=== PATIENT | female | born 1965 | race Caucasian/White ===

== ENCOUNTER 2019-11-19 16:36 | Emergency (ER) | payer MEDICAID ==
[~2019-11-19] VITALS: Ht 154.9 cm; Wt 54.4 kg
[2019-11-19 16:55] VITALS: BP 86/53
[2019-11-19] MEDS ORDERED: NACL 0.9% 1,000 ML IV SCH (17:12)
[2019-11-19] MEDS ORDERED: ONDANSETRON 4 MG/2 ML VIAL IVP ONE (17:15)
[2019-11-19] MEDS ORDERED: PANTOPRAZOLE 40 MG INJ VIAL IVP ONE (17:15)
[2019-11-19] MEDS: PROMETHAZINE 25 MG/ML VIAL IM ONE ×2 (17:39→17:40)
[2019-11-19 17:52] LABS: BASOPHILS # (AUTO) 0.1 K/uL (0.00-0.22); BASOPHILS % (AUTO) 0.6 % (0.0-2.0); EOSINOPHILS # (AUTO) 0.3 K/uL (0-0.4); EOSINOPHILS % (AUTO) 3.5 % (0.0-4.0); HEMOGLOBIN 11.1 g/dL (12.0-16.0); LYMPHOCYTES # (AUTO) 2.1 K/uL (2.5-16.5); LYMPHOCYTES % (AUTO) 23.6 % (20.5-51.1); MEAN CORPUSCULAR HEMOGLOBIN 25 pg (27-31); MEAN CORPUSCULAR HGB CONC 31 g/dL (33-37); MEAN CORPUSCULAR VOLUME 82.8 fL (80-94); MONOCYTES # (AUTO) 0.3 K/uL (0.8-1.0); MONOCYTES % (AUTO) 2.9 % (1.7-9.3); NEUTROPHILS # (AUTO) 6.1 K/uL (1.8-7.7); NEUTROPHILS % (AUTO) 69.4 % (42.2-75.2); PLATELET COUNT (AUTO) 453 K/uL (140-450); RED BLOOD CELL COUNT(AUTO) 4.35 MIL/uL (4.20-5.40); RED CELL DISTRIBUTION WIDTH 17.1 % (11.6-13.7); WHITE BLOOD COUNT (AUTO) 8.7 K/uL (4.8-10.8)
--- NOTE | 2019-11-19 18:01 | NUR ---
54/F TO ED WITH C/O NAUSEA/VOMITTING/DIARRHEA WITH ADBOMINAL PAIN X 8 DAYS. LARGE EMESIS IN TRIAGE. ABD IS SOFT NON TENDER, NO DISTENTION NOTED. BOWEL SOUNDS ACTIVE X 4. REPORT MILD PAIN UPON PALPATION TO UPPER QUADRANTS. IN BED FOR MSE.
[2019-11-19 18:14] LABS: ANION GAP 18.5 (8-16); CARBON DIOXIDE 25.4 mmol/L (21-32); CREATININE 0.8 mg/dL (0.6-1.3); POTASSIUM 3.9 mmol/L (3.5-5.1)
[2019-11-19 18:20] LABS: ALBUMIN 4.5 g/dL (3.4-5.0); MAGNESIUM 3.1 mg/dL (1.8-2.4); TOTAL BILIRUBIN 0.3 mg/dL (0.0-1.0)
--- NOTE | 2019-11-19 18:50 | NUR ---
PT ABLE TO AMBULATE TO BATHROOM AND PROVIDE URINE SAMPLE
[2019-11-19 18:56] VITALS: BP 110/81
[2019-11-19 19:09] LABS: BILIRUBIN,URINE NEGATIVE (NEGATIVE); BLOOD, URINE NEGATIVE (NEGATIVE); COLOR,URINE YELLOW (YELLOW); LEUKOCYTE ESTERASE ,URINE NEGATIVE (NEGATIVE); NITRITE, URINE POSITIVE (NEGATIVE); PH,URINE 5.5 (5.0-9.0); UGLUCOSE NEGATIVE (NEGATIVE)
[2019-11-19 19:11] LABS: APPEARANCE,URINE HAZY (CLEAR)
--- NOTE | 2019-11-19 19:18 | NUR ---
SBAR REPORTED GIVEN TO JUAN DICK
--- NOTE | 2019-11-19 19:18 | NUR ---
RECEIVED REPORT FROM MAYELIN GARCIA.
[2019-11-21 06:07] LABS: HEPATITIS B SURFACE ANTIGEN Negative (Negative)
== END 2019-11-19 20:37 | disposition home or self-care (01) ==
LOC: MED 16:36
DX: K29.70 Gastritis, unspecified, without bleeding (principal); Z85.9 Personal history of malignant neoplasm, unspecified
CPT/HCPCS: 36415; 74176; 76705; 80053; 81003; 82150; 82977; 83690; 83735; 85025; 85610; 85730; 86803; 86886; 86900; 86901; 87340; 93005; 96361; 96374; 96375; 99284; C9113; J2405; J2550; J7030; Q0092

== ENCOUNTER 2023-03-31 08:33 | Day surgery (SDC) | payer OTHER ==
[~2023-03-31] VITALS: Ht 154.9 cm; Wt 54.4 kg
[2023-03-31] MEDS ORDERED: diphenhydrAMINE 50 MG/ML VIAL ONE (09:28)
[2023-03-31] MEDS ORDERED: fentaNYL citrate 0.05 MG/ML VIAL ONE ×2 (09:28→09:29)
[2023-03-31] MEDS ORDERED: LIDOCAINE 2% 100 MG/5 ML UJET TP ONE (09:29)
[2023-03-31] MEDS ORDERED: MIDAZOLAM 5 MG/5 ML VIAL ONE (09:29)
[2023-03-31] MEDS ORDERED: diphenhydrAMINE 50 MG/ML VIAL IVP ONE (10:45)
[2023-03-31] MEDS ORDERED: fentaNYL citrate 0.05 MG/ML VIAL IVP ONE (10:45)
[2023-03-31] MEDS ORDERED: MIDAZOLAM 5 MG/5 ML VIAL IV ONE (10:45)
== END 2023-03-31 11:36 | disposition home or self-care (01) ==
LOC: MDS 08:33 → MMU 08:34 → MDS 11:36
PROVIDERS: ATTEND Internal Medicine Gastroenterology
DX: Z12.11 Encounter for screening for malignant neoplasm of colon (principal); K57.30 Diverticulosis of large intestine without perforation or abscess without bleeding; R93.3 Abnormal findings on diagnostic imaging of other parts of digestive tract; E11.9 Type 2 diabetes mellitus without complications; Z90.710 Acquired absence of both cervix and uterus; Z79.84 Long term (current) use of oral hypoglycemic drugs; Z79.899 Other long term (current) drug therapy; Z85.3 Personal history of malignant neoplasm of breast
CPT/HCPCS: 45380; 88305; J1200; J2250; J3010